=== PATIENT | female | born 1945 | race Caucasian/White ===

== ENCOUNTER 2016-12-02 10:22 | Emergency (ER) | payer OTHER, MEDICARE ==
[~2016-12-02 10:22] MED LIST: IBUPROFEN200 MG PO; MAXZIDE-25 PO; MELATONIN CR3 MG; METHOCARBAMOL500 MG PO; NORCO1 TAB PO; OMEPRAZOLE20 MG; VITAMIN D-32000 UNIT PO; [UNRECOGNIZED DRUG - OTHER]
--- NOTE | 2016-12-02 15:06 | ED CLINICAL REPORT ---
Clinical Report - Physicians/Mid Levels [facility] [address] [place] [address] 12/02/2016 10:27 Patient: CHRISTINA MOONEY Time Seen: 11:17 Dec 02 2016. Arrived- By private vehicle. Historian- patient. CPT: ER phys charges level 4 (#[id number]). HISTORY OF PRESENT ILLNESS Chief Complaint: DYSURIA. (patient indicates she was seen yesterday for urinary symptoms and positive UA for urinary tract infection. She was giving a Septra for antibiotics she took one at 4 PM and then at 11 PM. This morning around 8 AM she had vomiting 3 and just felt poor. She called her PCP and was referred to the ER. Patient has felt feverish but no chills. Has low back pain along with her dysuria.). Still present but is better now. (Did not take an antibiotic pill this morning.). The symptoms are described as moderate. Modifying factors- worsened by urination. Not relieved by anything. The patient has had mild abdominal pain. The pain is described as located in the suprapubic region. She has had pain with urination. The patient has had urinary frequency. Similar symptoms previously: Recent medical care: The patient was seen recently at another facility in a clinic. REVIEW OF SYSTEMS The patient has had nausea. She has had vomiting. No fever, chills, sore throat, cough or difficulty breathing. No chest pain, skin rash, enlarged lymph nodes or joint pain. All systems otherwise negative, except as recorded above. PAST HISTORY ( Nystagmus. Depression . High blood pressure . ADDITIONAL SURGERIES: Appendectomy. Gerd surgery. Leg surgery . Tubal Ligation.). Medications: Sulfamethoxazole-Trimethoprim Oral. Omeprazole Oral. Benadryl Allergy Oral. Hydrocodone-Acetaminophen Oral. Methocarbamol Oral. Triameterene. Allergies: Cipro. Flagyl. SOCIAL HISTORY Never smoker. No alcohol use or drug use. ADDITIONAL NOTES The nursing notes have been reviewed. PHYSICAL EXAM Vital Signs: 12/02/2016 10:40 BP: 148/88. HR: 84. RR: 18. O2 saturation: 95%. Temp: 97.9 F. Appearance: Alert. Anxious. Patient in mild distress. HEENT: Normal external inspection. ENT: Pharynx normal. Neck: Neck supple. CVS: Heart sounds normal. Respiratory: No respiratory distress. Breath sounds normal. Chest nontender. Abdomen: Soft. Mild tenderness in the suprapubic area. No guarding. Bowel sounds normal. No mass. Skin: Skin warm. Normal skin color. No rash. Extremities: Extremities nontender. Neuro: Oriented X 3. Mood/affect normal. No motor deficit. LABS, X-RAYS, AND EKG Laboratory Tests: UA-Culture if indicated: (YAMILEX: 12/02/2016 10:45) ( [facility] 12/02/2016 12:31) Final results Test Result Flag Units (Reference) URINE COLOR ORANGE URINE APPEARANCE CLEAR URINE GLUCOSE TRACE (NEGATIVE) URINE BILIRUBIN Test not performed (NEGATIVE) TEST NOT PERFORMED DUE TO COLOR INTERFERENCE URINE KETONE Test not performed (NEGATIVE) TEST NOT PERFORMED DUE TO COLOR INTERFERENCE URINE SPECIFIC GRAVITY 1.025 (1.010-1.030) URINE PH Test not performed (5.0-8.0) TEST NOT PERFORMED DUE TO COLOR INTERFERENCE URINE PROTEIN Test not performed (NEGATIVE) TEST NOT PERFORMED DUE TO COLOR INTERFERENCE URINE UROBILINOGEN Test not performed EU/dL (0.2-1.0) TEST NOT PERFORMED DUE TO COLOR INTERFERENCE URINE NITRITE Test not performed (NEGATIVE) TEST NOT PERFORMED DUE TO COLOR INTERFERENCE URINE BLOOD NEGATIVE (NEGATIVE) URINE LEUK ESTERASE TRACE (NEGATIVE) URINE RBC NONE SEEN rbc/hpf (0-1) URINE WBC 5-10 wbc/hpf (0-1) URINE EPITHELIAL CELLS 1-3 EPI/hpf (0-5) URINE BACTERIA FEW (1+) (NONE SEEN) URINE COMMENT CULTURE INDICATED 5 HYALINE CASTS/LPFURINE CULTURES ARE SET-UP BASED ON THE FOLLOWING CRITERIA:POSITIVE NITRITEPOSITIVE LEUKOCYTE ESTERASEGREATER THAN 10 WHITE BLOOD CELLSMODERATE (2+) OR GREATER BACTERIA CBC w Diff: (YAMILEX: 12/02/2016 11:38) ( [facility] 12/02/2016 12:04) Final results Test Result Flag Units (Reference) WHITE BLOOD COUNT 9.1 K/uL (4.5-11.5) RED BLOOD COUNT 4.85 M/uL (4.00-5.20) HEMOGLOBIN 14.0 gm/dL (12.0-16.0) HEMATOCRIT 42.2 % (36.0-46.0) MEAN CELL VOLUME 87 fL (80-100) MEAN CORPUSCULAR HGB 29 pg (26-34) MEAN CORPUSCULAR HGB CONC 33 g/dL (31-37) RED CELL DISTRIBUTION WIDTH 13.3 % (11.6-14.8) PLATELET COUNT 255 K/uL (150-400) NEUTROPHIL % 71.8 % (50-75) LYMPH % 20.1 L % (25-40) MONO % 6.2 % (3-14) EOSINOPHIL % 1.1 % (0-4) BASOPHIL % 0.8 % (0-2) CHEM 13 PANEL: (YAMILEX: 12/02/2016 11:38) ( MsgRcvd 12/02/2016 12:46) Final results Test Result Flag Units (Reference) GLUCOSE 111 H mg/dL (70-110) BUN 10 mg/dL (7-18) CREATININE 1.0 mg/dL (0.6-1.3) Estimated GFR 58.09 mL/min Estimated GFR- >60 mL/min Note: Persistent reduction over 3 months in eGFR<60 mL/min/1.73 m2 defines CKD. Patients with eGFR values>=60 mL/min/1.73 m2 may also have CKD if evidence ofpersistent proteinuria. Additional information may be foundat www.[email or web address].org. SODIUM 141 mmol/L (136-145) POTASSIUM 3.4 L mmol/L (3.5-5.1) CHLORIDE 101 mmol/L (98-107) CARBON DIOXIDE 28 mmol/L (21-32) CALCIUM 9.9 mg/dL (8.5-10.1) TOTAL PROTEIN 7.7 g/dL (6.4-8.2) ALBUMIN 3.7 g/dL (3.3-5.0) BILIRUBIN, TOTAL 0.5 mg/dL (0.0-1.0) ALKALINE PHOSPHATASE 88 U/L (46-116) AST (SGOT) 23 U/L (15-37) ALT (SGPT) 31 U/L (12-78) MAGNESIUM 1.7 L mg/dL (1.8-2.4) CPK 83 U/L (24-260) TROPONIN I <0.05 ng/mL (0.00-1.5) TROPONIN REFERENCE RANGE:<0.1 NEGATIVE0.1-1.5 INDETERMINANT>1.5 POSITIVE . PROGRESS AND PROCEDURES Course of Care: IV NS Rocephin 2g IV Demerol 12.5mg IV Patient is stable. Symptoms better. Pt feels her N/V started due to her new abx. Will change meds and continue to treat the UTI. Patient/family counseled. Disposition: Discharged. Condition: stable. CLINICAL IMPRESSION Acute urinary tract infection with cystitis. No pyelonephritis. Possible reaction to medications. INSTRUCTIONS No strenuous activity. Rest. Drink plenty of fluids. Warnings: Further evaluation is necessary. GENERAL WARNINGS: Return or contact your physician immediately if your condition worsens or changes unexpectedly, if not improving as expected, or if other problems arise. Your Current Medications: STOP TAKING THE FOLLOWING MEDICATIONS: Sulfamethoxazole-Trimethoprim Oral. CONTINUE TAKING THE FOLLOWING MEDICATIONS: Benadryl Allergy Oral. Hydrocodone-Acetaminophen Oral. Methocarbamol Oral. Omeprazole Oral. Triameterene*. Prescription Medications: Zofran (orally disintegrating tablets) 4 mg: take 1 orally every 6 hours as needed for nausea. Dispense five (5). No refill. Ceftin 500 mg: take 1 tab orally every 12 hours for 10 days. No refills. Substitution is permissible. Follow-up: Return to the emergency department if getting worse. Follow up with your doctor Monday in three days. Call for an appointment. Understanding of the discharge instructions verbalized by patient and family. (Electronically signed by Armando Becerra MD 12/06/2016 8:47)
--- NOTE | 2016-12-02 15:07 | ED ORDER SUMMARY ---
..... Patient: CHRISTINA MOONEY OrderSheet [facility] VisitID: [id number] [place] [address] 71y, F Registration Date/Time: 12/02/2016 ORDER SHEET Weight: 105.2 kg (stated) Allergies: Cipro, Flagyl GENERAL ORDERS: UA-Culture if indicated Urgent (11:12/02/2016 Shravan CHAPMAN) (Ack 11:25 Mark Anthony) (11:44 LWhalen R.N.) CBC w Diff Urgent (11:12/02/2016 Shravan CHAPMAN) (Cancelled: Other11:23 Shravan CHAPMAN) Cardiac Panel Stat (:12/02/2016 Shravan CHAPMAN) (Ack 11:25 Mark Anthony) (11:44 LWhalen R.N.) MEDICATION ORDERS: IV FLUIDS: IV NS : initial bolus 500 mL (1000 mL/hr), then 250 mL/hr for 2h (NOW); Routine (11:12/02/2016 Shravan CHAPMAN) (11:45 LWhalen R.N.) Rocephin IV 2 gm/50mL (NOW) (14:11 12/02/2016 Shravan CHAPMAN) (14:28 LWhalen R.N.) Demerol IV 12.5 mg (NOW) (14:36 12/02/2016 Shravan CHAPMAN) (14:40 LWhalen R.N.) ORDER SHEET NOTES: [Electronically signed by Madonna Rivas R.N. (18:56 12/02/2016)] [Electronically signed by rAmando Becerra MD (08:47 12/06/2016)] [Electronically locked/signed by Madonna Rivas R.N. (18:56 12/02/2016)]
--- NOTE | 2016-12-02 15:07 | ED NURSING NOTES ---
Clinical Report - Nurses [facility] [address] [place] [address] 12/02/2016 10:27 Patient: CHRISTINA MOONEY TRIAGE Triage time 10:41 Dec 02 2016. Acuity: LEVEL 3. Chief Complaint: PAINFUL URINATION, URGENCY and FREQUENCY. ILA COMA SCORE: [place] Coma Scale: 15- eyes open spontaneously (4); best verbal response- oriented x 4 (5); best motor response- obeys commands (6). --10:48 Madonna Rivas R.N. 10:40 12/02/16. BP: 148/88. HR: 84. RR: 18. O2 saturation: 95%. Temp: 97.9 F. Pain level now 310. --10:48 Madonna Rivas R.N. Weight: 105.2 kg stated. Height/Length: 65 inches Per Patient. BMI: 38.6. --10:47 Madonna Rivas R.N. Medications Triameterene. --10:49 Madonna Rivas R.N. Methocarbamol Oral. --10:49 Madonna Rivas R.N. Hydrocodone-Acetaminophen Oral. --10:49 Madonna Rivas R.N. Benadryl Allergy Oral. --10:49 Madonna Rivas R.N. Omeprazole Oral. --10:50 Madonna Rivas R.N. Sulfamethoxazole-Trimethoprim Oral. --10:51 Madonna Rivas R.N. Allergies Cipro. --10:51 Madonna Rivas R.N. Flagyl. --10:52 Madonna Rivas R.N. History Arrived by private vehicle. Historian: patient. Accompanied by family. Onset. (2 days ago). She has had abdominal pain and flank pain. No spotting, hematuria, abnormal bleeding or fever. Last oral intake by patient was dinner. Treatment [employer]: (bactrim pyridium). PAST MEDICAL HX: No history of diabetes mellitus or hypertension. No history of pelvic inflammatory disease, endometriosis or sexually transmitted disease. Immunizations: up-to-date. SOCIAL HX: Never smoker. No alcohol use or drug use. No infectious disease exposure. SELF HARM ASSESSMENT: A self harm assessment was performed. The patient answered "no" to the question "Have you recently felt down, depressed, or hopeless?" and "Do you have thoughts of harming or killing yourself?". FALL RISK ASSESSMENT: Fall risk assessment completed. No fall risk identified. NUTRITIONAL RISK ASSESSMENT: The nutritional risk assessment revealed no deficiencies. FUNCTIONAL ASSESSMENT: Functional assessment: no impairments noted. LEARNING NEEDS ASSESSMENT: The learning needs assessment revealed no barriers. ABUSE ASSESSMENT: Abuse assessment: (yes) The patient was asked "Do you feel safe in your home?". SKIN INTEGRITY ASSESSMENT: Skin integrity risk assessment completed. No skin integrity risk identified. --10:48 Madonna Rivas R.N. PROBLEMS: Nystagmus. Depression . High blood pressure . --10:55 Madonna Rivas R.N. ADDITIONAL SURGERIES: Appendectomy. Gerd surgery. Leg surgery . Tubal Ligation. --10:55 Madonna Rivas R.N. Interventions ID band on patient. --10:48 Madonna Rivas R.N. PHYSICAL ASSESSMENT Ambulatory to room. GENERAL / NEURO / PSYCH: Alert. Oriented X 4. Appears in no acute distress. HEENT: Mucous membranes are pink. RESPIRATORY: Respirations not labored. Breath sounds within normal limits. CVS: Normal heart rate and rhythm. Capillary refill less than 2 seconds. GI / : Abdomen soft. Abdominal tenderness. Bowel sounds within normal limits. Pain with urination. She has had frequency of urination. Urgency of urination. CVA tenderness. No vaginal bleeding. No vaginal discharge. No genital lesions noted. SKIN: Skin is warm and dry. --10:55 Madonna Rivas R.N. NURSING PROGRESS NOTES The initial plan of care for this patient includes an assessment with efforts to address patient positioning and appropriate ambient lighting; impairment of the genitourinary system. Pulse oximeter and NIBP monitor placed on patient. Patient gowned. Head of bed elevated 45 degrees. Reassurance given. Call light placed in reach. Side rails up x 1. Bed placed in lowest position. --10:56 Madonna Rivas R.N. 11:35 12/02/2016 Site #1 started via IV in the right hand with an 20g angiocath, with aseptic technique and good blood return; one attempt. Blood drawn: rainbow set. Labeled in the presence of the patient and sent to the lab. Saline lock flushed with 10 mL saline. --11:45 Madonna Rivas R.N. 11:40 12/02/2016 Started bag #1 500 mL IV Fluids IV NS (Saline); at 1000 mL/hr over 1 hour(s) via site #1 via IV pump. Allergies verified and confirmed 5 rights. IV patency established. IV site checked: no pain, redness, or swelling. IV flushed thoroughly pre- and post-medication administration. --11:45 Madonna Rivas R.N. 12:21 12/02/2016 IV Fluids IV NS via IV site #1 Rate Changed: bag #1 decreased to 250 mL/hr via IV pump. IV patency established. IV site checked: no pain, redness, or swelling. IV flushed thoroughly. Confirmed 5 Rights. --12:21 Ingrid Benavides R.N. 12:45 12/02/16. ( patient ambulated to bathroom.). --12:45 Myra Jessica R.N. 14:28 12/02/2016 Started 2 gm of Rocephin (CefTRIAXone Sodium) IVPB in bag #1 50 mL; at 150 mL/hr over 1 hour(s) via site #1 via IV pump. Allergies verified and confirmed 5 rights. IV patency established. IV site checked: no pain, redness, or swelling. IV flushed thoroughly pre- and post-medication administration. --14:28 Madonna Rivas R.N. 14:31 12/02/16. BP: 142/75. HR: 76. RR: 18. O2 saturation: 94%. Temp: 98.4 F. Pain level now 9/10. --14:31 Madonna Rivas R.N. 14:40 12/02/2016 Demerol (Meperidine HCl) IVP 12.5 mg given over 1 minute(s) via site #1. Allergies verified and confirmed 5 rights. IV patency established. IV site checked: no pain, redness, or swelling. IV flushed thoroughly pre- and post-medication administration. --14:40 Madonna Rivas R.N. DISPOSITION / DISCHARGE 15:18 12/02/2016 Site #1 removed upon discharge. Catheter intact. Pressure dressing applied. --15:18 Madonna Rivas R.N. 15:18 12/02/2016 IV Fluids IV NS Discontinued: bag #1 infused upon discharge. Total amount infused: 1000 mL. IV patency established. IV site checked: no pain, redness, or swelling. IV flushed thoroughly. --15:18 Madonna Rivas R.N. 15:18 12/02/2016 Rocephin IVPB Discontinued: bag #1 infused upon discharge. Total amount infused: 50 mL. IV patency established. IV site checked: no pain, redness, or swelling. IV flushed thoroughly. --15:18 Madonna Rivas R.N. Departure time: 15:Dec 02 2016. Condition at departure: improved. No learning barriers present. Discharge instructions provided and reviewed with the patient. Reviewed warnings. Reviewed medication(s). Treatments reviewed. Reviewed referrals. Work note given. Patient verbalized understanding. Written instructions provided in British. The patient was discharged home and accompanied by family. She left the Emergency Department ambulatory and via private vehicle. Family member driving. --15:18 Madonna Rivas R.N. 14:31 12/02/16. BP: 142/75. HR: 76. RR: 18. O2 saturation: 94%. Temp: 98.4 F. Pain level now 910. --15:18 Madonna Rivas R.N. Locked/Released at 12/02/2016 18:56 by Madonna Rivas R.N.
--- NOTE | 2016-12-02 15:07 | ED ORDER SUMMARY ---
..... Patient: CHRISTINA MOONEY OrderSheet [facility] VisitID: [id number] [place] [address] 71y, F Registration Date/Time: 12/02/2016 ORDER SHEET Weight: 105.2 kg (stated) Allergies: Cipro, Flagyl GENERAL ORDERS: UA-Culture if indicated Urgent (11:12/02/2016 Shravan CHAPMAN) (Ack 11:25 Mark Anthony) (11:44 LWhalen R.N.) CBC w Diff Urgent (11:12/02/2016 Shravan CHAPMAN) (Cancelled: Other11:23 Shravan CHAPMAN) Cardiac Panel Stat (:12/02/2016 Shravan CHAPMAN) (Ack 11:25 Mark Anthony) (11:44 LWhalen R.N.) MEDICATION ORDERS: IV FLUIDS: IV NS : initial bolus 500 mL (1000 mL/hr), then 250 mL/hr for 2h (NOW); Routine (11:12/02/2016 Shravna CHAPMAN) (11:45 LWhalen R.N.) Rocephin IV 2 gm/50mL (NOW) (14:11 12/02/2016 Shravan CHAPMAN) (14:28 LWhalen R.N.) Demerol IV 12.5 mg (NOW) (14:36 12/02/2016 Shravan CHAPMAN) (14:40 LWhalen R.N.) ORDER SHEET NOTES: [Electronically signed by Madonna Rivas R.N. (18:56 12/02/2016)] [Electronically signed by Armando Becerra MD (08:47 12/06/2016)] [Electronically locked/signed by Madonna Rivas R.N. (18:56 12/02/2016)]
--- NOTE | 2016-12-06 08:47 | ED DISCHARGE INSTRUCTIONS ---
Patient: CHRISTINA MOONEY General Instructions [facility] VisitID: [id number] [place] [address] 71y, F Registration Date/Time: 12/02/2016 Acute urinary tract infection with cystitis. No pyelonephritis. Possible reaction to medications. INSTRUCTIONS No strenuous activity. Rest. Drink plenty of fluids. Warnings: Further evaluation is necessary. GENERAL WARNINGS: Return or contact your physician immediately if your condition worsens or changes unexpectedly, if not improving as expected, or if other problems arise. Your Current Medications: STOP TAKING THE FOLLOWING MEDICATIONS: Sulfamethoxazole-Trimethoprim Oral. CONTINUE TAKING THE FOLLOWING MEDICATIONS: Benadryl Allergy Oral. Hydrocodone-Acetaminophen Oral. Methocarbamol Oral. Omeprazole Oral. Triameterene*. Prescription Medications: Zofran (orally disintegrating tablets) 4 mg: take 1 orally every 6 hours as needed for nausea. Dispense five (5). No refill. Ceftin 500 mg: take 1 tab orally every 12 hours for 10 days. No refills. Substitution is permissible. Follow-up: Return to the emergency department if getting worse. Follow up with your doctor Monday in three days. Call for an appointment. Understanding of the discharge instructions verbalized by patient and family. ADDITIONAL INFORMATION Bladder Infection,Female (Adult) A bladder infection ("cystitis" or "UTI") usually causes a constant urge to urinate and a burning when passing urine. Urine may be cloudy, smelly or dark. There may be pain in the lower abdomen. A bladder infection occurs when bacteria from the vaginal area enter the bladder opening (urethra). This can occur from sexual intercourse, wearing tight clothing, dehydration and other factors. Home Care: Drink lots of fluids (at least 6-8 glasses a day, unless you must restrict fluids for other medical reasons). This will force the medicine into your urinary system and flush the bacteria out of your body. Avoid sexual intercourse until your symptoms are gone. Avoid caffeine, alcohol and spicy foods. These can irritate the bladder. A bladder infection is treated with antibiotics. You may also be given Pyridium (generic = phenazopyridine) to reduce the burning sensation. This medicine will cause your urine to become a bright orange color. The orange urine may stain clothing. You may wear a pad or panty-liner to protect clothing. Preventing Future Infections: Always wipe from front to back after a bowel movement. Keep the genital area clean and dry. Drink plenty of fluids each day to avoid dehydration. Both sexual partners should wash before intercourse. Urinate right after intercourse to flush out the bladder. Wear cotton underwear and cotton-lined panty hose; avoid tight-fitting pants. If you are on control pills and are having frequent bladder infections, discuss with your doctor. Follow Up: Return to this facility or see your doctor if ALL symptoms are not gone after three days of treatment. Get Prompt Medical Attention if any of the following occur: Fever of 100.4F (38C) or higher, or as directed by your healthcare provider No improvement by the third day of treatment Increasing back or abdominal pain Repeated vomiting; unable to keep medicine down Weakness, dizziness or fainting Vaginal discharge Pain, redness or swelling in the labia (outer vaginal area) Ondansetron Oral disintegrating tablet What is this medicine? ONDANSETRON (on WILLIAM se miesha) is used to treat nausea and vomiting caused by chemotherapy. It is also used to prevent or treat nausea and vomiting after surgery. How should I use this medicine? These tablets are made to dissolve in the mouth. Do not try to push the tablet through the foil backing. With dry hands, peel away the foil backing and gently remove the tablet. Place the tablet in the mouth and allow it to dissolve, then swallow. While you may take these tablets with water, it is not necessary to do so. Talk to your magnaflux operator regarding the use of this medicine in children. Special care may be needed. What side effects may I notice from receiving this medicine? Side effects that you should report to your doctor or health acute care physical therapist as soon as possible: allergic reactions like skin rash, itching or hives, swelling of the face, lips, or tongue breathing problems dizziness fast or irregular heartbeat feeling faint or lightheaded, falls fever and chills swelling of the hands and feet tightness in the chest Side effects that usually do not require medical attention (report to your doctor or health acute care physical therapist if they continue or are bothersome): constipation or diarrhea headache What may interact with this medicine? Do not take this medicine with any of the following medications: -apomorphine -cisapride -dofetilide -dronedarone -pimozide -thioridazine -ziprasidone This medicine may also interact with the following medications: -carbamazepine -phenytoin -rifampicin -tramadol -other medicines that prolong the QT interval (cause an abnormal heart rhythm) What if I miss a dose? If you miss a dose, take it as soon as you can. If it is almost time for your next dose, take only that dose. Do not take double or extra doses. Where should I keep my medicine? Keep out of the reach of children. Store between 2 and 30 degrees C (36 and 86 degrees F). Throw away any unused medicine after the expiration date. What should I tell my health care provider before I take this medicine? They need to know if you have any of these conditions: heart disease history of irregular heartbeat liver disease low levels of magnesium or potassium in the blood an unusual or allergic reaction to ondansetron, granisetron, other medicines, foods, dyes, or preservatives or trying to get breast-feeding What should I watch for while using this medicine? Check with your doctor or health acute care physical therapist as soon as you can if you have any sign of an allergic reaction. You have been given the following additional information: Bladder Infection, Female (Adult) Ondansetron Oral disintegrating tablet No strenuous activity. Rest. (Electronically signed by Armando Becerra MD 12/06/2016 8:47)
--- NOTE | 2016-12-06 08:47 | ED MAR SUMMARY ---
..... Medication Administration Record [facility] [address] [place] [place] [address] Patient: CHRISTINA MOONEY Visit ID: [id number] 71y, F Weight: 105.2 kg Height/Length: 65 in BMI: 38.6 ALLERGIES: Flagyl, Cipro Start 11:40 12/02/2016 Madonna Rivas R.N., Stop 15:18 12/02/2016 Madonna Rivas R.N. Medication Administered: IV NS (SALINE), Dose: IV Fluids over 1 hour(s), Rate: 1000 mL/hr, Dispensed: 500 mL bag, Site: #1 right hand. Medication Ordered: IV NS : initial bolus 500 mL (1000 mL/hr), then 250 mL/hr for 2h (NOW); Routine. Start 14:28 12/02/2016 Madonna Rivas R.N., Stop 15:18 12/02/2016 Madonna Rivas R.N. Medication Administered: ROCEPHIN [IVPB] (CEFTRIAXONE SODIUM), Dose: 2 gm IVPB over 1 hour(s), Rate: 150 mL/hr, Dispensed: 50 mL bag, Site: #1 right hand. Medication Ordered: Rocephin IV 2 gm/50mL (NOW). Given 14:40 12/02/2016 Madonna Rivas R.N. Medication Administered: DEMEROL [IVP] (MEPERIDINE HCL), Dose: 12.5 mg IVP over 1 minute(s), Site: #1 right hand. Medication Ordered: Demerol IV 12.5 mg (NOW).
--- NOTE | 2016-12-06 08:47 | ED DISCHARGE INSTRUCTIONS ---
Patient: CHRISTINA MOONEY General Instructions [facility] VisitID: [id number] [place] [address] 71y, F Registration Date/Time: 12/02/2016 Acute urinary tract infection with cystitis. No pyelonephritis. Possible reaction to medications. INSTRUCTIONS No strenuous activity. Rest. Drink plenty of fluids. Warnings: Further evaluation is necessary. GENERAL WARNINGS: Return or contact your physician immediately if your condition worsens or changes unexpectedly, if not improving as expected, or if other problems arise. Your Current Medications: STOP TAKING THE FOLLOWING MEDICATIONS: Sulfamethoxazole-Trimethoprim Oral. CONTINUE TAKING THE FOLLOWING MEDICATIONS: Benadryl Allergy Oral. Hydrocodone-Acetaminophen Oral. Methocarbamol Oral. Omeprazole Oral. Triameterene*. Prescription Medications: Zofran (orally disintegrating tablets) 4 mg: take 1 orally every 6 hours as needed for nausea. Dispense five (5). No refill. Ceftin 500 mg: take 1 tab orally every 12 hours for 10 days. No refills. Substitution is permissible. Follow-up: Return to the emergency department if getting worse. Follow up with your doctor Monday in three days. Call for an appointment. Understanding of the discharge instructions verbalized by patient and family. ADDITIONAL INFORMATION Bladder Infection,Female (Adult) A bladder infection ("cystitis" or "UTI") usually causes a constant urge to urinate and a burning when passing urine. Urine may be cloudy, smelly or dark. There may be pain in the lower abdomen. A bladder infection occurs when bacteria from the vaginal area enter the bladder opening (urethra). This can occur from sexual intercourse, wearing tight clothing, dehydration and other factors. Home Care: Drink lots of fluids (at least 6-8 glasses a day, unless you must restrict fluids for other medical reasons). This will force the medicine into your urinary system and flush the bacteria out of your body. Avoid sexual intercourse until your symptoms are gone. Avoid caffeine, alcohol and spicy foods. These can irritate the bladder. A bladder infection is treated with antibiotics. You may also be given Pyridium (generic = phenazopyridine) to reduce the burning sensation. This medicine will cause your urine to become a bright orange color. The orange urine may stain clothing. You may wear a pad or panty-liner to protect clothing. Preventing Future Infections: Always wipe from front to back after a bowel movement. Keep the genital area clean and dry. Drink plenty of fluids each day to avoid dehydration. Both sexual partners should wash before intercourse. Urinate right after intercourse to flush out the bladder. Wear cotton underwear and cotton-lined panty hose; avoid tight-fitting pants. If you are on control pills and are having frequent bladder infections, discuss with your doctor. Follow Up: Return to this facility or see your doctor if ALL symptoms are not gone after three days of treatment. Get Prompt Medical Attention if any of the following occur: Fever of 100.4F (38C) or higher, or as directed by your healthcare provider No improvement by the third day of treatment Increasing back or abdominal pain Repeated vomiting; unable to keep medicine down Weakness, dizziness or fainting Vaginal discharge Pain, redness or swelling in the labia (outer vaginal area) Ondansetron Oral disintegrating tablet What is this medicine? ONDANSETRON (on WILLIAM se miesha) is used to treat nausea and vomiting caused by chemotherapy. It is also used to prevent or treat nausea and vomiting after surgery. How should I use this medicine? These tablets are made to dissolve in the mouth. Do not try to push the tablet through the foil backing. With dry hands, peel away the foil backing and gently remove the tablet. Place the tablet in the mouth and allow it to dissolve, then swallow. While you may take these tablets with water, it is not necessary to do so. Talk to your pr specialist regarding the use of this medicine in children. Special care may be needed. What side effects may I notice from receiving this medicine? Side effects that you should report to your doctor or health medicare specialist as soon as possible: allergic reactions like skin rash, itching or hives, swelling of the face, lips, or tongue breathing problems dizziness fast or irregular heartbeat feeling faint or lightheaded, falls fever and chills swelling of the hands and feet tightness in the chest Side effects that usually do not require medical attention (report to your doctor or health medicare specialist if they continue or are bothersome): constipation or diarrhea headache What may interact with this medicine? Do not take this medicine with any of the following medications: -apomorphine -cisapride -dofetilide -dronedarone -pimozide -thioridazine -ziprasidone This medicine may also interact with the following medications: -carbamazepine -phenytoin -rifampicin -tramadol -other medicines that prolong the QT interval (cause an abnormal heart rhythm) What if I miss a dose? If you miss a dose, take it as soon as you can. If it is almost time for your next dose, take only that dose. Do not take double or extra doses. Where should I keep my medicine? Keep out of the reach of children. Store between 2 and 30 degrees C (36 and 86 degrees F). Throw away any unused medicine after the expiration date. What should I tell my health care provider before I take this medicine? They need to know if you have any of these conditions: heart disease history of irregular heartbeat liver disease low levels of magnesium or potassium in the blood an unusual or allergic reaction to ondansetron, granisetron, other medicines, foods, dyes, or preservatives or trying to get breast-feeding What should I watch for while using this medicine? Check with your doctor or health medicare specialist as soon as you can if you have any sign of an allergic reaction. You have been given the following additional information: Bladder Infection, Female (Adult) Ondansetron Oral disintegrating tablet No strenuous activity. Rest. (Electronically signed by Armando Becerra MD 12/06/2016 8:47)
--- NOTE | 2016-12-06 08:47 | ED MED RECONCILIATION SUMMARY ---
Patient: CHRISTINA MOONEY Medication Reconciliation Report [facility] VisitID: [id number] [place] [address] 71y, F Registration Date/Time: 12/02/2016 Weight: 105.2 kg Height/Length: 65 in. BMI: 38.6 ALLERGIES: Cipro, Flagyl The patient's Home Medications are listed below: STOP TAKING THE FOLLOWING MEDICATIONS: Sulfamethoxazole-Trimethoprim Oral CONTINUE TAKING THE FOLLOWING MEDICATIONS: Benadryl Allergy Oral Hydrocodone-Acetaminophen Oral Methocarbamol Oral Omeprazole Oral Triameterene The source(s) of the original Home Medication information: Not obtained. The following Medications were given to the patient in the Emergency Department: IV NS IV Fluids bolus 0, then 1000 mL/hr, administered: 12/02/2016 11:40:00 AM Rocephin [IVPB] IVPB bolus 0, then 2 gm 150 mL/hr, administered: 12/02/2016 2:28:00 PM Demerol [IVP] IVP 12.5 mg, administered: 12/02/2016 2:40:00 PM The following Medications were prescribed to the patient: Zofran (orally disintegrating tablets) 4 mg: take 1 orally every 6 hours as needed for nausea. Dispense five (5). No refill. -- Armando Becerra MD Ceftin 500 mg: take 1 tab orally every 12 hours for 10 days. No refills. Substitution is permissible. -- Armando Becerra MD
--- NOTE | 2016-12-06 08:47 | ED MED RECONCILIATION SUMMARY ---
Patient: CHRISTINA MOONEY Medication Reconciliation Report [facility] VisitID: [id number] [place] [address] 71y, F Registration Date/Time: 12/02/2016 Weight: 105.2 kg Height/Length: 65 in. BMI: 38.6 ALLERGIES: Cipro, Flagyl The patient's Home Medications are listed below: STOP TAKING THE FOLLOWING MEDICATIONS: Sulfamethoxazole-Trimethoprim Oral CONTINUE TAKING THE FOLLOWING MEDICATIONS: Benadryl Allergy Oral Hydrocodone-Acetaminophen Oral Methocarbamol Oral Omeprazole Oral Triameterene The source(s) of the original Home Medication information: Not obtained. The following Medications were given to the patient in the Emergency Department: IV NS IV Fluids bolus 0, then 1000 mL/hr, administered: 12/02/2016 11:40:00 AM Rocephin [IVPB] IVPB bolus 0, then 2 gm 150 mL/hr, administered: 12/02/2016 2:28:00 PM Demerol [IVP] IVP 12.5 mg, administered: 12/02/2016 2:40:00 PM The following Medications were prescribed to the patient: Zofran (orally disintegrating tablets) 4 mg: take 1 orally every 6 hours as needed for nausea. Dispense five (5). No refill. -- Armando Becerra MD Ceftin 500 mg: take 1 tab orally every 12 hours for 10 days. No refills. Substitution is permissible. -- Armando Becerra MD
--- NOTE | 2016-12-06 08:47 | ED MAR SUMMARY ---
..... Medication Administration Record [facility] [address] [place] [address] Patient: CHRISTINA MOONEY Visit ID: [id number] 71y, F Weight: 105.2 kg Height/Length: 65 in BMI: 38.6 ALLERGIES: Flagyl, Cipro Start 11:40 12/02/2016 Madonna Rivas R.N., Stop 15:18 12/02/2016 Madonna Rivas R.N. Medication Administered: IV NS (SALINE), Dose: IV Fluids over 1 hour(s), Rate: 1000 mL/hr, Dispensed: 500 mL bag, Site: #1 right hand. Medication Ordered: IV NS : initial bolus 500 mL (1000 mL/hr), then 250 mL/hr for 2h (NOW); Routine. Start 14:28 12/02/2016 Madonna Rivas R.N., Stop 15:18 12/02/2016 Madonna Rivas R.N. Medication Administered: ROCEPHIN [IVPB] (CEFTRIAXONE SODIUM), Dose: 2 gm IVPB over 1 hour(s), Rate: 150 mL/hr, Dispensed: 50 mL bag, Site: #1 right hand. Medication Ordered: Rocephin IV 2 gm/50mL (NOW). Given 14:40 12/02/2016 Madonna Rivas R.N. Medication Administered: DEMEROL [IVP] (MEPERIDINE HCL), Dose: 12.5 mg IVP over 1 minute(s), Site: #1 right hand. Medication Ordered: Demerol IV 12.5 mg (NOW).
== END 2016-12-02 15:20 | disposition home or self-care (01) ==
LOC: ED SRH 10:22
DX: N30.90 Cystitis, unspecified without hematuria (principal); Z88.1 Allergy status to other antibiotic agents
CPT/HCPCS: 90004; 90100; 90469; 90616; 92610; 92720; 95059